=== PATIENT | female | born 1970 | race Two or more races ===

== ENCOUNTER 2016-05-22 20:59 | Inpatient (IN) | payer MEDICAID ==
[~2016-05-22] VITALS: Ht 160 cm; Wt 75.3 kg
[2016-05-22 07:00] VITALS: BP 127/78
[2016-05-22 22:07] LABS: BASOPHILS % (AUTO) 0.3 % (0.0-2.0); DIFF TOTAL % 100 %; EOSINOPHILS # (AUTO) 0.1 /CMM (0.0-0.7); HEMATOCRIT 31 % (33-45); HEMOGLOBIN 9.9 g/dL (11.5-14.8); LYMPHOCYTES # (AUTO) 1.3 /CMM (0.8-4.8); LYMPHOCYTES % (AUTO) 33.9 % (20.0-44.0); MEAN CORPUSCULAR HEMOGLOBIN 22 PG (26.0-33.0); MEAN CORPUSCULAR HGB CONC 32 g/dl (31.0-36.0); MEAN CORPUSCULAR VOLUME 70 fL (82-100); MONOCYTES # (AUTO) 0.3 /CMM (0.1-1.30); MONOCYTES % (AUTO) 8.8 % (2.0-12.0); NEUTROPHILS # (AUTO) 2.1 /CMM (1.8-8.9); PLATELET COUNT (AUTO) 233 /CMM (150-450); RED BLOOD CELL COUNT(AUTO) 4.44 MIL/uL (4.0-5.2); WHITE BLOOD COUNT (AUTO) 3.8 K/uL (4.3-11.0)
[2016-05-22 22:20] LABS: CALCIUM, SERUM 7.1 mg/dL (8.5-10.1); POTASSIUM 4.4 mmol/L (3.5-5.1)
[2016-05-22 22:25] LABS: TROPONIN I 0.032 ng/mL (0.00-0.056)
[2016-05-22] MEDS ORDERED: NITROGLYCERIN 0.4 MG/TAB BOTTLE SL ONE (22:30)
[2016-05-22] MEDS ORDERED: ASPIRIN 325 MG TABLET PO ONE (22:30)
[2016-05-22] MEDS ORDERED: INSULIN REGULAR, HUMAN 100 UNIT/ML 10 ML VIAL SQ ONE (22:30)
[2016-05-22 22:36] LABS: INR 0.99 (0.87-1.13); PROTHROMBIN TIME 10.7 SECS (9.5-12.7)
[2016-05-22] MEDS ORDERED: NITROGLYCERIN 0.4 MG/TAB BOTTLE ONE (22:55)
[2016-05-22] MEDS ORDERED: INSULIN REGULAR, HUMAN 100 UNIT/ML 10 ML VIAL ONE (22:55)
[2016-05-22] MEDS ORDERED: ASPIRIN 325 MG TABLET ONE (22:55)
[2016-05-22] MEDS ORDERED: Z GUARD REMEDY 2 OZ OINT TP PRN (23:00)
[2016-05-22] MEDS ORDERED: MORPHINE SULFATE INJ 2 MG/ML DISP.SYRIN IV PRN (23:00)
[2016-05-22] MEDS ORDERED: ENOXAPARIN SODIUM 40 MG/0.4 ML DISP.SYRIN SQ SCH (23:00)
[2016-05-22] MEDS ORDERED: ACETAMINOPHEN 325 MG TABLET PO PRN (23:00)
[2016-05-22] MEDS ORDERED: MAGNESIUM HYDROXIDE 30 ML UDC PO PRN (23:00)
[2016-05-22] MEDS ORDERED: ZOLPIDEM TARTRATE 5 MG TABLET PO PRN (23:00)
[2016-05-22] MEDS ORDERED: MAG HYDROX/AL HYDROX/SIMETH 30 ML UDC PO PRN (23:00)
[2016-05-22] MEDS ORDERED: DEXTROSE 50%-WATER 50 ML DISP.SYRIN IV PRN (23:00)
[2016-05-23] VITALS: BP 156/82
[2016-05-23] MEDS ORDERED: IV NS 0.9% 1,000 ML ONE (00:57)
[2016-05-23] MEDS ORDERED: IV SET PRIMARY PUMP SET 1 EA INFUS.SET MC ONE (00:58)
[2016-05-23] MEDS: IV NS 0.9% 1,000 ML IV PRN ×2 (01:16→20:44)
[2016-05-23] MEDS: BLOOD SUGAR DIAGNOSTIC 1 EACH STRIP IN SCH ×6 (01:16→20:58)
[2016-05-23] MEDS ORDERED: ENOXAPARIN SODIUM 40 MG/0.4 ML DISP.SYRIN SQ ONE (01:21)
[2016-05-23] MEDS: INSULIN REGULAR, HUMAN 100 UNIT/ML 3 ML VIAL SQ PRN ×3 (02:04→20:54)
[2016-05-23] MEDS ORDERED: HUM10VIA3 SQ (03:32)
[2016-05-23] MEDS ORDERED: CLOP75TA2 PO (03:32)
[2016-05-23] MEDS ORDERED: ASPI325T2 PO (03:32)
[2016-05-23] MEDS ORDERED: ATOR40TA PO (03:32)
[2016-05-23 04:00] VITALS: BP 132/73
[2016-05-23 08:00] VITALS: BP 127/78
[2016-05-23 08:44] LABS: BASOPHILS % (AUTO) 0.3 % (0.0-2.0); DIFF TOTAL % 100 %; EOSINOPHILS # (AUTO) 0.1 /CMM (0.0-0.7); EOSINOPHILS % (AUTO) 3.4 % (0.0-6.0); HEMATOCRIT 32 % (33-45); HEMOGLOBIN 10.2 g/dL (11.5-14.8); LYMPHOCYTES # (AUTO) 1.3 /CMM (0.8-4.8); LYMPHOCYTES % (AUTO) 37.9 % (20.0-44.0); MEAN CORPUSCULAR HEMOGLOBIN 23 PG (26.0-33.0); MEAN CORPUSCULAR HGB CONC 32 g/dl (31.0-36.0); MEAN CORPUSCULAR VOLUME 71 fL (82-100); MONOCYTES # (AUTO) 0.3 /CMM (0.1-1.30); MONOCYTES % (AUTO) 10.1 % (2.0-12.0); NEUTROPHILS # (AUTO) 1.7 /CMM (1.8-8.9); NEUTROPHILS % (AUTO) 48.3 % (43.0-81.0); PLATELET COUNT (AUTO) 187 /CMM (150-450); RED BLOOD CELL COUNT(AUTO) 4.49 MIL/uL (4.0-5.2); WHITE BLOOD COUNT (AUTO) 3.4 K/uL (4.3-11.0)
[2016-05-23 09:12] LABS: ALBUMIN 2.3 g/dL (3.4-5.0); BILIRUBIN,TOTAL 0.2 mg/dL (0.2-1.0); CALCIUM, SERUM 6.8 mg/dL (8.5-10.1); CREATININE 2.7 mg/dL (0.6-1.3); PHOSPHORUS 4.5 mg/dL (2.5-4.9); POTASSIUM 4.4 mmol/L (3.5-5.1)
[2016-05-23] MEDS: ASPIRIN 81 MG TAB.CHEW PO SCH ×2 (09:40→09:42)
[2016-05-23] MEDS: CLOPIDOGREL BISULFATE 75 MG TABLET PO SCH ×2 (09:40→09:42)
[2016-05-23 09:41] LABS: EOSINOPHILS % (MANUAL) 3 % (0-4); HYPOCHROMASIA 1+; LYMPHOCYTES % (MANUAL) 31 % (16-48); PLATELET ESTIMATE ADEQUATE
[2016-05-23] MEDS: PANTOPRAZOLE 40 MG TABLET.DR PO SCH ×2 (09:41→09:42)
[2016-05-23] MEDS: NITROGLYCERIN 0.4 MG/TAB BOTTLE SL PRN ×2 (10:05→18:42)
[2016-05-23] MEDS ORDERED: CLOPIDOGREL BISULFATE 75 MG TABLET PO SCH (10:10)
[2016-05-23] MEDS: ATORVASTATIN 40 MG TABLET PO SCH (10:35)
[2016-05-23] MEDS: HYDROCODONE/APAP 5/325MG 1 EACH TABLET PO PRN ×2 (10:35→20:45)
[2016-05-23] MEDS ORDERED: Magnesium 1GM/D5W 100ML PREMIX 100 ML IV SCH (12:00)
[2016-05-23] MEDS ORDERED: SECONDARY IV SET 1 EA INFUS.SET MC ONE (12:37)
[2016-05-23] MEDS: METOPROLOL TARTRATE 25 MG TABLET PO SCH ×2 (14:48→20:45)
[2016-05-23] MEDS: ISOSORBIDE MONONITRATE (30MG) 30 MG TAB.SR.24H PO SCH (14:50)
[2016-05-23 14:59] LABS: KETONES,URINE NEGATIVE (NEGATIVE); LEUKOCYTE ESTERASE ,URINE NEGATIVE (NEGATIVE); PH,URINE 5.5 (5.0-8.0)
[2016-05-23 15:01] LABS: ADD UA MICROSCOPIC YES
[2016-05-23 15:09] LABS: ADD URINE CULTURE NO; WBC,URINE 0-2 /HPF (0-3)
[2016-05-23 15:31] LABS: CREATININE, URINE 43.4 MG/DL (30.0-125.0); URINE TOTAL PROTEIN 178.9 mg/dL (0-11.9)
[2016-05-23 16:00] VITALS: BP 164/80
[2016-05-23 20:00] VITALS: BP 136/70
[2016-05-24] MEDS: BLOOD SUGAR DIAGNOSTIC 1 EACH STRIP IN SCH ×6 (01:17→20:48)
[2016-05-24] MEDS: HYDROCODONE/APAP 5/325MG 1 EACH TABLET PO PRN ×3 (05:05→20:48)
[2016-05-24] MEDS: ONDANSETRON HCL/PF 4 MG/2 ML VIAL IVP PRN ×2 (05:32→14:45)
[2016-05-24 06:14] LABS: BASOPHILS % (AUTO) 0.4 % (0.0-2.0); CALCIUM, SERUM 7.3 mg/dL (8.5-10.1); CREATININE 2.6 mg/dL (0.6-1.3); DIFF TOTAL % 100 %; EOSINOPHILS # (AUTO) 0.2 /CMM (0.0-0.7); EOSINOPHILS % (AUTO) 3.9 % (0.0-6.0); HEMATOCRIT 33 % (33-45); HEMOGLOBIN 10.4 g/dL (11.5-14.8); LYMPHOCYTES # (AUTO) 1.7 /CMM (0.8-4.8); LYMPHOCYTES % (AUTO) 36.7 % (20.0-44.0); MEAN CORPUSCULAR HEMOGLOBIN 22 PG (26.0-33.0); MEAN CORPUSCULAR HGB CONC 31 g/dl (31.0-36.0); MEAN CORPUSCULAR VOLUME 71 fL (82-100); MONOCYTES # (AUTO) 0.4 /CMM (0.1-1.30); MONOCYTES % (AUTO) 7.6 % (2.0-12.0); NEUTROPHILS # (AUTO) 2.4 /CMM (1.8-8.9); NEUTROPHILS % (AUTO) 51.4 % (43.0-81.0); PHOSPHORUS 3.5 mg/dL (2.5-4.9); PLATELET COUNT (AUTO) 237 /CMM (150-450); POTASSIUM 4.7 mmol/L (3.5-5.1); RED BLOOD CELL COUNT(AUTO) 4.66 MIL/uL (4.0-5.2); WHITE BLOOD COUNT (AUTO) 4.7 K/uL (4.3-11.0)
[2016-05-24 06:59] LABS: EOSINOPHILS % (MANUAL) 2 % (0-4); LYMPHOCYTES % (MANUAL) 40 % (16-48)
[2016-05-24 07:00] LABS: HYPOCHROMASIA 1+; PLATELET ESTIMATE ADEQUATE
[2016-05-24 08:17] VITALS: BP 138/72
[2016-05-24] MEDS: ISOSORBIDE MONONITRATE (30MG) 30 MG TAB.SR.24H PO SCH (08:53)
[2016-05-24] MEDS: ATORVASTATIN 40 MG TABLET PO SCH (08:53)
[2016-05-24] MEDS: ASPIRIN 81 MG TAB.CHEW PO SCH (08:53)
[2016-05-24] MEDS: METOPROLOL TARTRATE 25 MG TABLET PO SCH ×2 (08:53→20:50)
[2016-05-24] MEDS: INSULIN REGULAR, HUMAN 100 UNIT/ML 3 ML VIAL SQ PRN ×3 (08:59→20:56)
[2016-05-24] MEDS ORDERED: ASPIRIN 325 MG TABLET PO SCH (09:00)
[2016-05-24] MEDS: IV NS 0.9% 1,000 ML IV PRN (14:38)
[2016-05-24 16:00] VITALS: BP 131/71
[2016-05-24 20:00] VITALS: BP 134/66
[2016-05-24 20:22] VITALS: BP 134/66
[2016-05-25] MEDS: ONDANSETRON HCL/PF 4 MG/2 ML VIAL IVP PRN (01:20)
[2016-05-25] MEDS: HYDROCODONE/APAP 5/325MG 1 EACH TABLET PO PRN (01:20)
[2016-05-25] MEDS: BLOOD SUGAR DIAGNOSTIC 1 EACH STRIP IN SCH ×2 (01:22→05:08)
[2016-05-25] MEDS: INSULIN REGULAR, HUMAN 100 UNIT/ML 3 ML VIAL SQ PRN ×2 (01:26→05:19)
[2016-05-25] MEDS: IV NS 0.9% 1,000 ML IV PRN (04:27)
[2016-05-25] MEDS ORDERED: METO25TA20 PO (06:18)
[2016-05-25] MEDS ORDERED: Isosorbide Mononitrate PO (06:18)
[2016-05-25 06:22] LABS: BASOPHILS % (AUTO) 0.5 % (0.0-2.0); DIFF TOTAL % 100 %; EOSINOPHILS # (AUTO) 0.2 /CMM (0.0-0.7); EOSINOPHILS % (AUTO) 3.6 % (0.0-6.0); HEMATOCRIT 32 % (33-45); HEMOGLOBIN 10.1 g/dL (11.5-14.8); LYMPHOCYTES # (AUTO) 1.7 /CMM (0.8-4.8); LYMPHOCYTES % (AUTO) 30.6 % (20.0-44.0); MEAN CORPUSCULAR HEMOGLOBIN 23 PG (26.0-33.0); MEAN CORPUSCULAR HGB CONC 32 g/dl (31.0-36.0); MEAN CORPUSCULAR VOLUME 71 fL (82-100); MONOCYTES # (AUTO) 0.5 /CMM (0.1-1.30); MONOCYTES % (AUTO) 8.4 % (2.0-12.0); NEUTROPHILS # (AUTO) 3.1 /CMM (1.8-8.9); NEUTROPHILS % (AUTO) 56.9 % (43.0-81.0); PLATELET COUNT (AUTO) 218 /CMM (150-450); RED BLOOD CELL COUNT(AUTO) 4.48 MIL/uL (4.0-5.2); WHITE BLOOD COUNT (AUTO) 5.5 K/uL (4.3-11.0)
[2016-05-25 06:57] LABS: CALCIUM, SERUM 7.7 mg/dL (8.5-10.1); CREATININE 2.6 mg/dL (0.6-1.3); PHOSPHORUS 2.5 mg/dL (2.5-4.9)
[2016-05-25 08:00] VITALS: BP 135/57
[2016-05-25] MEDS: PANTOPRAZOLE 40 MG TABLET.DR PO SCH (08:27)
[2016-05-25] MEDS: ATORVASTATIN 40 MG TABLET PO SCH (08:27)
[2016-05-25] MEDS: METOPROLOL TARTRATE 25 MG TABLET PO SCH (08:27)
[2016-05-25] MEDS: CLOPIDOGREL BISULFATE 75 MG TABLET PO SCH (08:27)
[2016-05-25] MEDS: ISOSORBIDE MONONITRATE (30MG) 30 MG TAB.SR.24H PO SCH (08:27)
[2016-05-25] MEDS: ASPIRIN 81 MG TAB.CHEW PO SCH (08:27)
[2016-05-25 08:37] VITALS: BP 135/57
[2016-05-25] MEDS ORDERED: BLOOD SUGAR DIAGNOSTIC 1 EACH STRIP IN SCH (12:00)
[2016-05-25] MEDS ORDERED: INSULIN REGULAR, HUMAN 100 UNIT/ML 3 ML VIAL SQ PRN (12:00)
[2016-05-25] MEDS ORDERED: NEOMY SULF/BACITRAC ZN/POLY 15 GM TUBE TP SCH (15:00)
== END 2016-05-25 16:30 | disposition home or self-care (01) | DRG 198 ==
LOC: ER 21:01 → TELE 23:01 → MED 05-23 09:08
PROVIDERS: ADMIT Family Medicine; ATTEND Family Medicine
DX: I25.10 Atherosclerotic heart disease of native coronary artery without angina pectoris (principal); N17.0 Acute kidney failure with tubular necrosis; E11.22 Type 2 diabetes mellitus with diabetic chronic kidney disease; Z89.511 Acquired absence of right leg below knee; E87.1 Hypo-osmolality and hyponatremia; E11.65 Type 2 diabetes mellitus with hyperglycemia; I12.9 Hypertensive chronic kidney disease with stage 1 through stage 4 chronic kidney disease, or unspecified chronic kidney disease; N18.4 Chronic kidney disease, stage 4 (severe); E78.5 Hyperlipidemia, unspecified; E83.42 Hypomagnesemia; E87.2 Acidosis; F17.210 Nicotine dependence, cigarettes, uncomplicated; D63.8 Anemia in other chronic diseases classified elsewhere; E83.9 Disorder of mineral metabolism, unspecified; Z98.61 Coronary angioplasty status; K75.81 Nonalcoholic steatohepatitis (NASH)
CPT/HCPCS: 36415; 71010-TC; 76700-TC; 80048-TC; 80053-TC; 80061-TC; 81000-TC; 82570-TC; 82962-TC; 83735-TC; 84100-TC; 84155-TC; 84300-TC; 84484-TC; 85025-TC; 85730-TC; 87081-TC; 93307-TC; 97003-TC; A4606; J1650; J1815; J2405; J3475; J7030; Z7610